=== PATIENT | female | born 1945 | race Caucasian/White ===

== ENCOUNTER 2016-11-25 07:04 | Inpatient (IN) | payer MEDICARE ==
[2016-11-22 11:12] LABS: HEMATOCRIT 40.5 % (36.0-48.0); HEMOGLOBIN 14.2 g/dL (12.0-16.0)
[2016-11-22 11:29] LABS: BUN (BLOOD UREA NITROGEN) 14 MG/DL (6-23); CALCIUM, SERUM 9.8 MG/DL (8.5-10.4); CHLORIDE, SERUM 106 MMOL/L (96-112); CO2 (CARBON DIOXIDE) 31 MMOL/L (24-34); CREATININE 0.75 MG/DL (0.55-1.02); GFR AFRICAN AMERICAN 92 ML/MIN (>=60); GFR NON AFRICAN AMERICAN 80 ML/MIN (>=60); GLUCOSE, SERUM 88 MG/DL (60-99); SODIUM, SERUM 141 MMOL/L (135-148)
--- NOTE | ~2016-11-25 | OP ---
Record Of Operation [facility] [address] [place]. [address] NAME: NANNETTE SADLER : 43 STATUS : ADM IN [facility]#: [id number] AGE: 71 ADM/REG DATE : 11/25/16 MR#: [id number] REPORT SERV DATE: 11/25/16 DICTATED BY: DEAN MANZANO DATE: 11/25/16 REPORT STATUS : Draft TRANSCRIBED BY: MODL DATE: 11/25/16 DATE OF PROCEDURE: 11/25/2016 PREOPERATIVE DIAGNOSIS: Reducible incisional hernia. POSTOPERATIVE DIAGNOSIS: Reducible incisional hernia. PROCEDURE: 1. Open incisional hernia repair with mesh. 2. Component separation. SURGEON: Dean Manzano MD. RESIDENT: Kuldeep Matta MD. ANESTHESIA: General. ESTIMATED BLOOD LOSS: 25 mL. IV FLUIDS: 1400 mL. SPECIMENS: None. COMPLICATIONS: None. BRIEF HISTORY: Ms. Sadler is a 71-year-old woman who is now several years out from an open ileocecectomy for a perforation. She developed an incisional hernia. Open repair with mesh and possible component separation was recommended, and the procedure with the risks including bleeding; infection; injury to underlying bowel, needing repair or resection; mesh infection, requiring removal and recurrence were all explained. She agreed to proceed. DESCRIPTION OF PROCEDURE: After consent was obtained, she was taken to the operating room, placed in supine position on the operating table. General endotracheal anesthesia administered. The abdomen was then prepped and draped in normal sterile fashion. Preoperative antibiotics were administered. SCDs were placed. Time-out was performed. We began by reopening the midline incision using a 15 blade scalpel. Electrocautery was then used to dissect down to the hernia sac. We then elevated first the right side of the skin and dissected the hernia sac back away to the fascia. This was dissected out circumferentially. We then created skin flaps on the fascia for better visualization. We then elevated the fascia and then carefully dissected the hernia sac away from the posterior aspect of the muscle and fascia to create a plane for the mesh. There were couple of areas, where we had small serosal tears, which were repaired using interrupted 3-0 silk sutures. There was no violation of the mucosa at any point. We then reapproximated the hernia sac over the bowel as much as possible in order to create a barrier between the bowel Record Of Operation [facility] [address] [place]. [address] NAME: NANNETTE SADLER : 43 STATUS : ADM IN PAT#: [id number] AGE: 71 ADM/REG DATE : 11/25/16 MR#: [id number] REPORT SERV DATE: 11/25/16 DICTATED BY: DEAN MANZANO AMELIA DATE: 11/25/16 REPORT STATUS : Draft TRANSCRIBED BY: MODL DATE: 11/25/16 and the mesh. Once we had a nice circumferential preperitoneal dissection, we measured it to be 20 x 15 cm. We were unable to get the fascia back together without significant tension. Therefore, we elected to perform a component separation. We enlarged our skin flaps to go back to the pubis bone and up to the ribs. We then identified an area just 3 cm lateral to the rectus muscle and incised the fascia, first starting on the right side. We then opened the external oblique fascia down to the ASIS and up over the top of the ribs. We then created a blunt dissection to free up the space laterally. We repeated this for the left side in similar fashion, making a small window into the external oblique fascia, approximately 2-3 cm lateral to the rectus. We opened this down to the ASIS and up over the top of the ribs. Once again, blunt dissection was used to separate the muscle layers. This allowed the muscle to come back together in the midline. We then placed Ventralight 20 x 15 mesh into the preperitoneal space. It was sutured circumferentially using interrupted #1 Nurolon U stitches. It was sewn laterally to the lateral edge of the external oblique fascia, where it was incised. Hemostasis was good. We irrigated this area. We then closed the midline fascia using interrupted #1 PDS sutures. There was no significant tension on the fascial layers. We irrigated once again the subcutaneous tissues. We made a small stab incision in the right lower quadrant and placed a 10 flat BRENDA drain into this cavity. We closed the midline in 2 layers, first starting with the interrupted 3-0 Vicryl sutures and then the skin was closed using a running 4-0 Monocryl subcuticular stitch. The abdomen is cleaned and Dermabond was applied. The patient tolerated the procedure well. She was extubated in the operating room and sent to the recovery room in stable condition. WG/MODL Dean Manzano MD / [id number] CC: Dean Manzano MD
[~2016-11-25 07:04] MED LIST: ASAB PO; FLAG500TAB PO; FLEXERIL5 MG PO; HALF81 PO; KLONO1 PO; LEVAQUIN750 MG PO; LEVOTHYROXIN100 MCG PO; LOTE40 PO; MOBIC7.5 PO; MULTIVIT/MIN PO; NORCO1 TAB PO; PROZAC40 MG PO; TRAZ50 PO; VITAMIN D1000 UNI1 PO; VITC500 PO
[2016-11-27] MEDS ORDERED: NORCO1 TAB PO (15:37)
== END 2016-11-27 17:12 | disposition home or self-care (01) | DRG 355 ==
LOC: SDC/OF 07:04 → PACU 13:36 → 5SO 15:08
PROVIDERS: Surgery
PROC: 0WUF0JZ Supplement Abdominal Wall with Synthetic Substitute, Open Approach (ICD-10-PCS; principal; 2016-11-25 09:00)
DX: K43.2 Incisional hernia without obstruction or gangrene (principal); I10 Essential (primary) hypertension; E03.9 Hypothyroidism, unspecified; Z79.899 Other long term (current) drug therapy
CPT/HCPCS: 80048; 85014; 85018; 87641; 93005; 97161-GP; A9270-GY; C1781; G8978-CK-GP; G8979-CI-GP; J0690; J2250; J2405; J2710; J2795; J3010; P9045